=== PATIENT | male | born 1985 | race African-American/Black ===

== ENCOUNTER 2016-09-04 11:36 | Emergency (ER) | payer OTHER ==
[2016-09-04 11:53] VITALS: BP 138/87
[2016-09-04] MEDS ORDERED: FLEXERIL PO ONE (12:02)
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
== END 2016-09-04 12:30 | disposition home or self-care (01) ==
LOC: P.ED 11:36
DX: S13.4XXA Sprain of ligaments of cervical spine, initial encounter (principal); M54.2 Cervicalgia; M79.1 Myalgia; F17.210 Nicotine dependence, cigarettes, uncomplicated; Z79.01 Long term (current) use of anticoagulants; Z71.6 Tobacco abuse counseling; Z86.718 Personal history of other venous thrombosis and embolism; V89.2XXA Person injured in unspecified motor-vehicle accident, traffic, initial encounter
CPT/HCPCS: 99282